=== PATIENT | male | born 1930 | race Caucasian/White ===

== ENCOUNTER → 2020-03-05 | Outpatient (CLI) | payer MEDICARE, BC ==
--- NOTE | 2020-03-05 17:10 | RAD ---
XR CHEST 2V 03/05/2020 3:18 PM INDICATION: History of chest pain COMPARISON: None available TECHNIQUE: Portable frontal view of the chest is provided. FINDINGS: The cardiomediastinal silhouette is enlarged. Median sternotomy changes are present. Lungs are clear. There are no significant pleural effusions. There is no pulmonary vascular congestion. No pneumothora x. Right shoulder arthroplasty changes are identified. Dextroconvex scoliosis of the thoracic spine is n oted. IMPRESSION: Stable cardiomegaly without acute cardiopulmonary process. Electronically signed by: Meenakshi Nuñez MD (03/05/2020 5:07 PM) [id number]
== END ==
LOC: DXRAD 15:02
PROVIDERS: ATTEND Specialist
DX: R06.02 Shortness of breath (principal); M41.84 Other forms of scoliosis, thoracic region; I51.7 Cardiomegaly; Z96.611 Presence of right artificial shoulder joint; Z48.812 Encounter for surgical aftercare following surgery on the circulatory system
CPT/HCPCS: 71046

== ENCOUNTER 2020-07-03 13:05 | Emergency (ER) | payer MEDICARE, BC ==
[~2020-07-03] VITALS: Ht 172.7 cm; Wt 68.0 kg
[2020-07-03] MEDS ORDERED: BACITRACIN ZINC TOPICAL OINT PACKET. TP ONE (14:30)
[2020-07-03] MEDS ORDERED: DIPH,PERTUSS(ACELL),TET VAC/PF 0.5 ML SYRINGE. VAX IM ONE (14:30)
--- NOTE | 2020-07-03 14:51 | RAD ---
CT scan of the head without contrast 07/03/2020 Clinical History: Fall with head injury. Technique: Unenhanced, contiguous, 5 mm axial sections were obtained through the head. One or more of the following individualized dose reduction techniques were utilized for this study: 1. Automated exposure control. 2. Adjustment of the mA and/or kV according to patient size. 3. Use of iterative reconstruction technique. Findings: There is generalized parenchymal atrophy. Areas of decreased attenuation are seen within t he periventricular and subcortical white matter of both cerebral hemispheres consistent with areas of small vessel ischemic disease. No acute parenchymal abnormality is seen. No extra-axial fluid collec tion is noted. No skull fracture is seen. A 2 cm mucous retention cyst is seen involving the right ma xillary sinus. Moderate to severe mucosal thickening is seen involving the left aspect of the sphenoi d sinus. Impression: No acute intracranial abnormality is seen. CT scan of the cervical spine without contrast 07/03/2020 Clinical history: Fall with neck injury. Technique: Unenhanced, contiguous, 0.625 mm axial sections were obtained through the cervical spine. 2 mm reconstructed axial and 2 mm coronal and sagittal reconstructed images were obtained. One or more of the following individualized dose reduction techniques were utilized for this study: 1. Automated exposure control. 2. Adjustment of the mA and/or kV according to patient size. 3. Use of iterative reconstruction technique. Findings: Sagittal and coronal reconstructed images demonstrate mild S-shaped curvature of the cervic othoracic spine. There is straightening of the normal cervical lordosis. Degenerative changes consist ing of varying degrees of disc space narrowing, vertebral endplate sclerosis and mild to moderate ant erior vertebral body osteophyte formation are seen throughout the cervical disc spaces. Atherosclerot ic calcifications in the region of the carotid bifurcations. No fracture or subluxation of the cervical vertebrae is seen. Degenerative changes are seen involving the uncovertebral and facet joints throughout the cervical disc spaces. Impression: No fracture or subluxation of the cervical vertebra is identified. Electronically signed by: Justice Dawson MD (07/03/2020 2:49 PM) [id number]
--- NOTE | 2020-07-03 14:55 | RAD ---
CT scan of facial bones and orbits without contrast 07/03/2020 CLINICAL HISTORY: Fall with facial injury. TECHNIQUE: Unenhanced, contiguous, 0.625 mm axial sections were obtained through the facial bones and orbits. 3 mm reconstructed sagittal, axial and coronal images were obtained. One or more of the following individualized dose reduction techniques were utilized for this study: 1. Automated exposure control. 2. Adjustment of the mA and/or kV according to patient size. 3. Use of iterative reconstruction technique. FINDINGS: A 2 cm mucous retention cyst is seen involving the right maxillary sinus. Moderate to sever e mucosal thickening is seen involving the left aspect of the sphenoid sinus. No facial bone fracture is seen. Both orbits are intact. Mild mucosal thickening in seen scattered throughout the ethmoid ai r cells bilaterally. No air-fluid level is seen. There is a moderate sized right laureano bullosa. IMPRESSION: No facial bone or orbital fracture is seen. Electronically signed by: Justice Dawson MD (07/03/2020 2:52 PM) [id number]
[2020-07-03] MEDS ORDERED: CEPH500C PO (16:18)
--- NOTE | 2020-07-03 16:19 | PHYS DOC ---
Past History Past Medical History: CAD, Cancer, High Cholesterol, Hypertension (FERNY HEREDIA APRN) Past Surgical History: Coronary Bypass Surgery, Other Additional Past Surgical Histo: HERNIA, COLON RESECTION (FERNY HEREDIA APRN) Alcohol Use: None (FERNY HEREDIA APRN) Adult General Chief Complaint Chief Complaint: MECHANICAL FALL HPI HPI Patient is a 89-year-old male who presents emergency department with chief complaint of approximately 1 hour prior to arrival he was outside spreading grass seed on a steep hill when he made his turn he stumbled down the hill and hit his head on the sidewalk. Patient denies any loss of consciousness. This was witnessed by the patient's daughter who is at bedside. Patient's daughter states that he did not lose consciousness. Patient states he landed on the right side of his body hitting the right side of his cheek head elbow and knee onto the ground. Patient was able to get back up without assistance, ambulates without any pain. Patient denies any pain to his joints. Patient only complains of abrasions to his knee, left elbow and upper arm, left cheek of his face, with mild 3/10 pain to his cheek area. Patient denies any head pain or neck pain. Patient states his last tetanus immunization was greater than 5 years ago. Patient denies any visual disturbances, denies any dizziness, denies any shortness of breath or chest pain. Patient denies any chest palpitations. Patient denies any rashes to his skin. Patient denies any recent fever or chills. Patient denies any recent illnesses. Patient reports he is a patient of Dr. Paniagua, has allergies to codeine and morphine sulfate, reports taking medications for cholesterol, a water pill, omeprazole, and heart medications. Patient denies being on a blood thinner. (FERNY HEREDIA APRN) Review of Systems Review of Systems 14 body systems of review of systems have been reviewed. See HPI for pertinent positives and negative responses, otherwise all other systems are negative, nonpertinent or noncontributory. (FERNY HEREDIA APRN) Current Medications Current Medications Current Medications Medications (Trade) Dose Ordered Sig/Haley Start Time Stop Time Status Last Admin Dose Admin Bacitracin (Bacitracin Topical Pkt) 1 pkt 1X ONCE 07/03/20 14:30 07/03/20 14:31 DC 07/03/20 14:13 1 PKT Diphtheria/ Pertussis/Tetanus Vacc (ADACEL TDap SYRINGE) 0.5 ml ONCE ONCE 07/03/20 14:30 07/03/20 14:31 DC 07/03/20 14:13 0.5 ML (FERNY HEREDIA APRN) Allergies Allergies Allergies Coded Allergies Type Severity Reaction Last Updated Verified codeine Allergy Unknown hallucinations 07/03/20 Yes morphine Allergy Unknown hallucinations 07/03/20 Yes (FERNY HEREDIA APRN) Physical Exam Physical Exam Constitutional: Well developed, well nourished, no acute distress, non-toxic appearance. 89-year-old male in no apparent distress, ambulated with steady gait to room for examination. HENT: Normocephalic, atraumatic, bilateral external ears normal, oropharynx moist, no oral exudates, nose normal. Minor abrasion to right zygoma area, no crepitus or bruising appreciated to the face nose, head area. No skull depressions or areas of ecchymosis of the skull appreciated. No malocclusion, no drooling, no trismus appreciated. Bilateral tympanic membranes intact within normal limits, no drainage from bilateral external auditory canals, there is no raccoon eyes, no serrato's sign appreciated. Eyes: PERRLA, EOMI, conjunctiva normal, no discharge. Satisfactory 6 cardinal eye movements. Neck: Normal range of motion, no tenderness, supple, no stridor. No C-spine tenderness appreciated, no meningismus signs, no nuchal rigidity. Cardiovascular:Heart rate regular rhythm, no murmur, heart sounds S1-S2 to auscultation. Lungs & Thorax: Bilateral breath sounds clear to auscultation no adventitious lung sounds appreciated. No pain to the anterior thorax to palpation appreciated. Abdomen: Bowel sounds normal, soft, no tenderness, no masses, no pulsatile masses. No bruising or abrasions to the abdomen. Skin: Warm, dry, no erythema, no rash. See extremity note for skin abrasion assessment. Back: No tenderness, no CVA tenderness. Extremities: No tenderness, no cyanosis, no clubbing, ROM intact, no edema. Abrasions to right upper forearm, elbow, right knee, skin tear to right distal lateral bicep area. No pain elicited with movement of all extremities, patient complained of mild pain to skin tear site stating it was more burning than it is pain. Neurologic: Alert and oriented X 3, normal motor function, normal sensory function, no focal deficits noted. Psychologic: Affect normal, judgement normal, mood normal. (FERNY HEREDIA APRN) Current Patient Data Vital Signs Vital Signs Date Time Temp Pulse Resp B/P (MAP) Pulse Ox O2 Delivery O2 Flow Rate FiO2 07/03/20 13:25 97.9 78 18 139/93 (108) 96 Room Air (FERNY HEREDIA APRN) EKG EKG [] (FERNY HEREDIA APRN) Radiology/Procedures Radiology/Procedures []PATIENT: ANDREEA HOFFACCOUNT: [id number]#: [id number] : 1930 LOCATION: ER AGE: 89 SEX: M EXAM STATUS: REG ER ORD. PHYSICIAN: FERNY HEREDIA APRN REASON: FALL PROCEDURE: CT MAXILLOFACIAL WO CONTRAST CT scan of facial bones and orbits without contrast 07/03/2020 CLINICAL HISTORY: Fall with facial injury. TECHNIQUE: Unenhanced, contiguous, 0.625 mm axial sections were obtained through the facial bones and orbits. 3 mm reconstructed sagittal, axial and coronal images were obtained. One or more of the following individualized dose reduction techniques were util ized for this study: 1. Automated exposure control. 2. Adjustment of the mA and/or kV according to patient size. 3. Use of iterative reconstruction technique. FINDINGS: A 2 cm mucous retention cyst is seen involving the right maxillary sinus. Moderate to severe mucosal thickening is seen involving the left aspect of the sphenoid sinus. No facial bone fracture is seen. Both orbits are intact. Mild mucosal thickening in seen scattered throughout the ethmoid air cells bilaterally. No air-fluid level is seen. There is a moderate sized right laureano bullosa. IMPRESSION: No facial bone or orbital fracture is seen. Electronically signed by: Justice Dawson MD (07/03/2020 2:52 PM) [id number] DICTATED AND SIGNED BY: JUSTICE DAWSON MD DATE: 07/03/20 1449 CC: FERNY HEREDIA APRN; HAYDE PANIAGUA MD ~[facility] 0 PATIENT: ANDREEA HOFF ACCOUNT: [id number] : 1930 LOCATION: ER AGE: 89 SEX: M EXAM STATUS: REG ER ORD. PHYSICIAN: FERNY HEREDIA APRN REASON: FALL PROCEDURE: CT HEAD AND CERVICAL SPINE WO CT scan of the head without contrast 07/03/2020 Clinical History: Fall with head injury. Technique: Unenhanced, contiguous, 5 mm axial sections were obtained through the head. One or more of the following individualized dose reduction techniques were utilized for this study: 1. Automated exposure control. 2. Adjustment of the mA and/or kV according to patient size. 3. Use of iterative reconstruction technique. Findings: There is generalized parenchymal atrophy. Areas of decreased attenuation are seen within the periventricular and subcortical white matter of both cerebral hemispheres consistent with areas of small vessel ischemic disease. No acute parenchymal abnormality is seen. No extra-axial fluid collection is noted. No skull fracture is seen. A 2 cm mucous retention cyst is seen involving the right maxillary sinus. Moderate to severe mucosal thickening is seen involving the left aspect of the sphenoid sinus. Impression: No acute intracranial abnormality is seen. CT scan of the cervical spine without contrast 07/03/2020 Clinical history: Fall with neck injury. Technique: Unenhanced, contiguous, 0.625 mm axial sections were obtained through the cervical spine. 2 mm reconstructed axial and 2 mm coronal and sagittal reconstructed images were obtained. One or more of the following individualized dose reduction techniques were utilized for this study: 1. Automated exposure control. 2. Adjustment of the mA and/or kV according to patient size. 3. Use of iterative reconstruction technique. Findings: Sagittal and coronal reconstructed images demonstrate mild S-shaped curvature of the cervicothoracic spine. There is straightening of the normal cervical lordosis. Degenerative changes consisting of varying degrees of disc space narrowing, vertebral endplate sclerosis and mild to moderate anterior vertebral body osteophyte formation are seen throughout the cervical disc spaces. Atherosclerotic calcifications in the region of the carotid bifurcations. No fracture or subluxation of the cervical vertebrae is seen. Degenerative pugh es are seen involving the uncovertebral and facet joints throughout the cervical disc spaces. Impression: No fracture or subluxation of the cervical vertebra is identified. Electronically signed by: Justice Dawson MD (07/03/2020 2:49 PM) [id number] DICTATED AND SIGNED BY: JUSTICE DAWSON MD DATE: 07/03/20 1437 CC: FERNY HEREDIA APRN; HAYDE PANIAGUA MD ~[facility] 0 (FERNY HEREDIA APRN) Heart Score C/O Chest Pain: No Risk Factors: Risk Factors: DM, Current or recent (<one month) smoker, HTN, HLP, family history of CAD, obesity. Risk Scores: Risk Factors: DM, Current or recent (<one month) smoker, HTN, HLP, family history of CAD, obesity. (FERNY HEREDIA APRN) Course & Med Decision Making Course & Med Decision Making Pertinent Labs and Imaging studies reviewed. (See chart for details) 89-year-old male, vital signs reviewed, presents emergency department after a stumble and fall while spreading grass this morning approximately 1 hour prior to arrival to the ER today. Patient did not lose any consciousness. Patient had multiple minor abrasions with one skin tear to the right bicep area. Patient ambulated without difficulty, ambulated with steady gait. Physical examination concerning for possible head/facial bones/neck injury, ordered CT head, C-spine, maxillofacial bones without contrast. Patient's tetanus immunization was not up-to-date, the patient was given Adacel to bring tetanus immunization up-to-date today in the emergency department. Offered patient pain medication, patient refused stating that his pain is only at 3/10 on a 1-[address] imaging negative for acute process, discussed findings with patient, discussed with patient starting on Keflex 500 mg 4 times daily x5 days for infec tion prophylaxis related to injury happening outside doing yard work. Patient is amenable to this plan. Procedure note: Repaired skin tear right bicep area, cleansed area with chlorhexidine skin cleanser, flushed with normal saline, skin tear approximated and glued, partial skin avulsions at/around skin tear was covered with Tegaderm dressing. All other abrasions were cleansed with chlorhexidine cleanse, flushed with normal saline, dressed with bacitracin by ED nursing staff. Patient was given written information related to tetanus immunization by ED nursing staff. Patient gave verbal understanding of discharge home instructions, head injury precautions, postconcussive syndrome signs and symptoms, tetanus immunization brought up-to-date in the ER today, strict return to emergency department precautions and concerns, strict follow-up with primary care call for appointment on Sunday, patient was thankful and ready to go home, patient was discharged home without incident. Patient does live by self, however patient's daughter states she will stay with him tonight and monitor for head injury precautions (FERNY HEREDIA APRN) Dragon Disclaimer Dragon Disclaimer This electronic medical record was generated, in whole or in part, using a voice recognition dictation system. (FERNY HEREDIA APRN) Attending Co-Sign The patient was seen and interviewed as well as examined at the bedside. The chart was reviewed. The case was discussed. Agree with the plan of care. (JOI HAGER DO) Departure Departure: Impression: Primary Impression: Fall (on)(from) incline, initial encounter Additional Impressions: Injury of head in adult Concussion Abrasion Skin tear of right upper arm without complication Diphtheria, tetanus, acellular pertussis, and inactivated poliovirus vaccine (DTaP-IPV) administered Disposition: HOME / SELF CARE / HOMELESS Condition: GOOD Referrals: HAYDE PANIAGUA MD (PCP) Patient Instructions: Abrasions, Bacitracin skin ointment, Concussion and Brain Injury, Head Injury, Adult, Skin Tear Care Additional Instructions: You were seen in the emergency department today for a slip and fall on uneven surface while you were seeding your lawn. You did not lose consciousness however related to your health history and age a CT of your head and C-spine were performed. There were no concerning findings that would require admission to the hospital or immediate intervention by a neurologist, neurosurgeon, or orthopedic surgeon. Your tetanus status was brought up-to-date in the emergency department today. Your skin abrasions were cleansed and dressed today in the emergency department, your skin tear was repaired with Dermabond skin glue and covered with a Tegaderm dressing, the goal is to have this dressing intact for at least 5 to 7 days before Tegaderm dressing is removed. We discussed in detail head injury precautions, concussion precautions, we also discussed strict follow-up with your primary care physician, please call this Sunday for an appointment. Please return to the emergency department immediately for worsening symptoms or other concerns. Because of the multiple abrasions you suffered, I am prescribing you an antibiotic that you will take 4 times a day for the next 5 days. Please let your primary care physician know that you are on this antibiotic. Please let your primary care physician know that your tetanus status was brought up-to-date in the emergency department. Scripts Cephalexin (CEPHALEXIN) 500 Mg Capsule 1 CAP PO QID for SKIN INFECTION PREVENTION for 5 Days, #20 CAP 0 Refills Prov: FERNY HEREDIA APRN 07/03/20 Problem Qualifiers Additional Impressions: Concussion Encounter type: initial encounter Loss of consciousness presence/duration: without LOC Qualified Codes: S06.0X0A - Concussion without loss of consciousness, initial encounter Skin tear of right upper arm without complication Encounter type: initial encounter Qualified Codes: S41.111A - Laceration without foreign body of right upper arm, initial encounter FERNY HEREDIA APRN July 03, 2020 16:19 JOI HAGER DO July 05, 2020 12:13
[2020-07-03 16:25] VITALS: BP 128/86
== END 2020-07-03 16:25 | disposition home or self-care (01) ==
LOC: ER 13:05
DX: S41.111A Laceration without foreign body of right upper arm, initial encounter (principal); S06.0X0A Concussion without loss of consciousness, initial encounter; S80.212A Abrasion, left knee, initial encounter; S50.312A Abrasion of left elbow, initial encounter; S00.81XA Abrasion of other part of head, initial encounter; W17.89XA Other fall from one level to another, initial encounter; Y93.89 Activity, other specified; Y92.828 Other wilderness area as the place of occurrence of the external cause; Y99.8 Other external cause status
CPT/HCPCS: 70450; 70486; 72125; 90471; 90715; 99285-25

== ENCOUNTER → 2020-07-05 | Outpatient (CLI) | payer MEDICARE, BC ==
[2020-07-03 16:25] VITALS: BP 128/86
[~2020-07-05] MED LIST: CEPH500C PO
--- NOTE | 2020-07-05 11:44 | RAD ---
EXAM: Left knee, 4 views. HISTORY: Pain. Fall. COMPARISON: None. FINDINGS: 4 views of the left knee are obtained. There is moderate to severe medial joint space narro wing. There is moderate medial and patellofemoral compartment spurring. There is chondrocalcinosis. T here are vascular clips. There is a moderate joint effusion and prepatellar soft tissue swelling. IMPRESSION: 1. 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 2. No acute osseous finding. Electronically signed by: Joanna Duvall MD (07/05/2020 11:42 AM) [id number]
== END ==
LOC: RAD 11:15
PROVIDERS: ATTEND Physician Assistant
DX: M17.12 Unilateral primary osteoarthritis, left knee (principal); M25.462 Effusion, left knee; M79.89 Other specified soft tissue disorders
CPT/HCPCS: 73564

== ENCOUNTER → 2020-09-03 | Outpatient (CLI) | payer MEDICARE, BC ==
--- NOTE | 2020-09-03 16:09 | RAD ---
3 views the cervical spine without comparison for neck pain. FINDINGS: The atlantoaxial articulation is intact. There is no definite fracture or acute osseous or alignment abnormality identified, however there is deep angular scoliosis of the upper thoracic spine , apex at T3-4, which is not well depicted. If there is clinical concern for traumatic abnormality of the upper thoracic spine, dedicated CT scan is recommended. Within the cervical spine, there is hao re degenerative disc disease at C5-6 and C6-7, with near complete obliteration of the C5-6 interverte bral disc space. There is grade 1 retrolisthesis of C5 on C6, and grade 1 anterolisthesis of C4 on C5 . There is also grade 1 anterolisthesis of C7 on T1. There is mild posterior offset to the spinal oakley inar line at C5 consistent with the vertebral body retrolisthesis. Extensive multilevel facet arthros is is evident, along with uncovertebral arthrosis. Bilateral carotid artery stenosis. Median sternal wires, some of which are fractured. No significant prevertebral soft tissue swelling. IMPRESSION: 1. Extensive multilevel degenerative changes of the cervical spine, primarily at C5-6 and C6-7. No de finite fracture or acute osseous or alignment abnormality, however given the degree of facet and unco vertebral arthrosis along with the mild grade 1 retrolisthesis of C5, traumatic changes could be obsc ured. If there is history of trauma, further evaluation with CT scan of cervical spine should be cons idered. 2. Triangular deformity of the upper thoracic spine, apex T3-4. This is most likely degenerative, how ever once again if there is a history of trauma, further evaluation with CT of the thoracic spine ursula uld be considered. Electronically signed by: Jose Munson MD (09/03/2020 4:06 PM) [id number]
== END ==
LOC: RAD 14:45
PROVIDERS: ATTEND Specialist
DX: M47.22 Other spondylosis with radiculopathy, cervical region (principal); M50.122 Cervical disc disorder at C5-C6 level with radiculopathy; M43.12 Spondylolisthesis, cervical region; I65.23 Occlusion and stenosis of bilateral carotid arteries
CPT/HCPCS: 72040

== ENCOUNTER 2020-10-05 09:33 | Emergency (ER) | payer MEDICARE, BC ==
[~2020-10-05] VITALS: Ht 172.7 cm; Wt 64.9 kg
--- NOTE | 2020-10-05 10:10 | PHYS DOC ---
Past History Past Medical History: CAD, Cancer, High Cholesterol, Hypertension Additional Past Medical Histor: Non Hodgkins Lymphoma Past Surgical History: Coronary Bypass Surgery, Other Additional Past Surgical Histo: HERNIA, COLON RESECTION, shoulder replaced X 2 Alcohol Use: None Adult General Chief Complaint Chief Complaint: CHEST PAIN [facility] HPI Patient is a 89-year-old male presenting with daughter for chest pressure. Reports onset was 2 weeks ago without any known inciting event or trauma. Nothing known makes better or worse. Reports he woke up this morning with an episode that lasted approximately 30 seconds and resolved without any issues. Admits he has significant cardiac history, has history of 5 vessel CABG in 2008 with recent heart cath in March 2020 at which no intervention was performed. He is on no blood thinners, just aspirin for ongoing atrial fibrillation and is pending outpatient veterinary dentist consult for discussion on management options for his atrial fibrillation. Daughter admits there have been talks about placing a pacemaker in the past. Patient denies any symptoms on arrival, no lightheadedness or dizziness, fever, ripping or tearing sensation in the chest, shortness of breath or cough. He is fully vaccinated for COVID-19 Review of Systems Review of Systems Fourteen body systems of review of systems have been reviewed. See HPI for pertinent positives and negative responses, other gonzalez all other systems are negative, non-pertinent or non-contributory Allergies Allergies Allergies Coded Allergies Type Severity Reaction Last Updated Verified codeine Allergy Unknown hallucinations 10/05/20 Yes morphine Allergy Unknown hallucinations 10/05/20 Yes Physical Exam Physical Exam Constitutional: Well developed, well nourished, no acute distress, non-toxic appearance. HENT: Normocephalic, atraumatic, bilateral external ears normal, oropharynx moist, no oral exudates, nose normal. Eyes: PERRLA, EOMI, conjunctiva normal, no discharge. Neck: Normal range of motion, no tenderness, supple, no stridor. Cardiovascular: Heart rate regular, sinus rhythm, no murmurs rubs or gallops Lungs & Thorax: Bilateral breath sounds clear to auscultation Abdomen: Bowel sounds normal, soft, no tenderness, no masses, no pulsatile masses. Nonsurgical abdomen, no peritoneal signs Skin: Warm, dry, no erythema, no rash. Back: No tenderness, no CVA tenderness. Extremities: No tenderness, no cyanosis, no clubbing, ROM intact, no edema. Neurologic: Alert and oriented X 3, grossly normal motor & sensory function, no focal deficits noted. Psychologic: Affect normal, judgement normal, mood normal. Current Patient Data Vital Signs Vital Signs Date Time Temp Pulse Resp B/P (MAP) Pulse Ox O2 Delivery O2 Flow Rate FiO2 10/05/20 09:45 98.2 70 21 116/75 98 Lab Results Current Medications Medications (Trade) Dose Ordered Sig/Haley Route PRN Reason Start Time Stop Time Status Last Admin Dose Admin Aspirin (Aspirin Chewable) 162 mg 1X ONCE PO 10/05/20 10:15 10/05/20 10:16 DC 10/05/20 10:30 EKG EKG EKG ordered and interpreted by myself at 0950 hrs. as atrial fibrillation at 71 bpm, QRS 128 otherwise unremarkable intervals, left axis deviation, T wave inversion in lead aVL, no STEMI EKG ordered and interpreted by myself at 1150 hrs. as sinus rhythm at 67 bpm, prolonged CA interval at 292 and QTc 462 otherwise unremarkable intervals, left axis deviation, no obvious ischemic findings, no STEMI Radiology/Procedures Radiology/Procedures EXAM: CHEST 1 VIEW History: Chest pain COMPARISON: 03/05/2020 TECHNIQUE: Single portable radiograph of the chest FINDINGS: Unchanged mild cardiomegaly. The lungs are clear bilaterally. The costophrenic sulci are clear and well demarcated. IMPRESSION: No radiographic evidence of an acute cardiopulmonary process. Electronically signed by: Josue Poon MD (10/05/2020 10:38 AM) [id number] Heart Score C/O Chest Pain: Yes HEART Score for Chest Pain: HEART Score for Chest Pain Response (Comments) Value History Highly Suspicious 2 ECG Nonspecific Repolarizatio 1 Age > 65 2 Risk Factors >3 Risk Factors or Hx CAD 2 Troponin < Normal Limit 0 Total 7 Risk Factors: Risk Factors: DM, Current or recent (<one month) smoker, HTN, HLP, family history of CAD, obesity. Risk Scores: Risk Factors: DM, Current or recent (<one month) smoker, HTN, HLP, family history of CAD, obesity. Course & Med Decision Making Course & Med Decision Making Vitals stable. HPI, physical examination and ER work-up nonconcerning for any emergent or surgical issues. High heart score, I reviewed right risk of potential adverse cardiac event given patient's history and recommended cardiac observation Patient accepted at [facility] for [facility]. Nonetheless, due to COVID-19 pandemic and lack of beds, patient spent greater than 9 hours in our ER pending transfer. He had x3 - troponin and EKGs. Patient remained asymptomatic and voiced that he wanted to go home I disclosed that I could not fully guarantee no adverse cardiac event; however, given serial troponin and EKGs I did disclose there is a decrease risk especially since he remained asymptomatic. Patient and daughter continued to voice that they wanted to go home Ultimately, patient was discharged with close PCP and office rn follow-up in outpatient setting with strict return precautions discussed and fully understood by both prior to departure Dragon Disclaimer Dragon Disclaimer This electronic medical record was generated, in whole or in part, using a voice recognition dictation system. Departure Departure: Impression: Primary Impression: Chest pain, unspecified Disposition: HOME / SELF CARE / HOMELESS Condition: STABLE Referrals: HAYDE PANIAGUA MD (PCP) Patient Instructions: Chest Pain (Nonspecific) Additional Instructions: You were seen for chest pain. Your workup did not show any acute abnormalities today, but does not indicate that you do not have underlying cardiovascular disease. You do need to follow up with your primary doctor and your office rn for further evaluation and treatment. You should return to the ED if you develop worsening chest pain, shortness of breath, fever, abnormal sweating, leg swelling, or any other new or concerning symptoms. MISTY WOODARD DO Oct 05, 2020 10:10
[2020-10-05] MEDS ORDERED: ASPIRIN CHEWABLE 81 MG TABLET. PO ONE (10:15)
[2020-10-05 10:18] LABS: BASO % 0 % (0-3); EOS # 0.1 x10^3/uL (0.0-0.7); EOS % 2 % (0-3); HEMATOCRIT 40.3 % (39.0-53.0); HEMOGLOBIN 13.3 g/dL (13.0-17.5); LYMPH # 1.4 x10^3/uL (1.0-4.8); LYMPH % 25 % (24-48); MEAN CORPUSCULAR HEMOGLOBIN 31 pg (25-35); MEAN CORPUSCULAR HGB CONC 33 g/dL (31-37); MEAN CORPUSCULAR VOLUME 96 fL (79-100); MONO # 0.6 x10^3/uL (0.0-1.1); MONO % 11 % (0-9); NEUT # 3.4 x10^3uL (1.8-7.7); NEUT % 62 % (31-73); PLATELET COUNT 109 x10^3/uL (140-400); RED BLOOD COUNT 4.22 x10^6/uL (4.30-5.70); WHITE BLOOD COUNT 5.5 x10^3/uL (4.0-11.0)
[2020-10-05 10:35] LABS: CALCIUM 8.5 mg/dL (8.5-10.1); CREATININE 1.2 mg/dL (0.7-1.3); GFR 57.1; POTASSIUM 4.1 mmol/L (3.5-5.1)
--- NOTE | 2020-10-05 10:41 | RAD ---
EXAM: CHEST 1 VIEW History: Chest pain COMPARISON: 03/05/2020 TECHNIQUE: Single portable radiograph of the chest FINDINGS: Unchanged mild cardiomegaly. The lungs are clear bilaterally. The costophrenic sulci are c lear and well demarcated. IMPRESSION: No radiographic evidence of an acute cardiopulmonary process. Electronically signed by: Josue Poon MD (10/05/2020 10:38 AM) [id number]
[2020-10-05 10:42] LABS: ALBUMIN 3.4 g/dL (3.4-5.0); ALBUMIN/GLOBULIN RATIO 1.3 (1.0-1.7); TOTAL BILIRUBIN 0.5 mg/dL (0.2-1.0); TOTAL PROTEIN 6.1 g/dL (6.4-8.2)
--- NOTE | 2020-10-05 10:55 | EKG ---
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
--- NOTE | 2020-10-05 12:16 | EKG ---
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
[2020-10-05 17:45] VITALS: BP 110/72
== END 2020-10-05 17:54 | disposition home or self-care (01) ==
LOC: ER 09:33
DX: R07.9 Chest pain, unspecified (principal); I25.810 Atherosclerosis of coronary artery bypass graft(s) without angina pectoris; E78.00 Pure hypercholesterolemia, unspecified; I10 Essential (primary) hypertension; Z20.822 Contact with and (suspected) exposure to COVID-19; Z88.5 Allergy status to narcotic agent
CPT/HCPCS: 36415; 71045; 80053; 83880; 84484; 85025; 87426; 93005; 99285-25

== ENCOUNTER → 2021-03-24 | Outpatient (CLI) | payer MEDICARE, BC ==
[~2021-03-24] MED LIST changes: +PEG4000S8 PO
--- NOTE | 2021-03-24 12:41 | RAD ---
Examination: Upright and supine views of the abdomen HISTORY: History of diarrhea for one week COMPARISON: None available Findings/ impression: Moderate amount of stool identified throughout the colon probably constipation. The bowel gas pattern appears unremarkable. Lumbar levoscoliosis. Electronically signed by: Josue Poon MD (03/24/2021 12:39 PM) [id number]
== END ==
LOC: RAD 12:13
PROVIDERS: ATTEND Family Medicine
DX: K56.41 Fecal impaction (principal); R19.7 Diarrhea, unspecified
CPT/HCPCS: 74019

== ENCOUNTER 2021-03-25 17:26 | Emergency (ER) | payer MEDICARE, BC ==
[~2021-03-25] VITALS: Ht 172.7 cm; Wt 57.0 kg
[~2021-03-25 17:26] MED LIST changes: -PEG4000S8 PO
[2021-03-25 17:43] VITALS: BP 107/71
--- NOTE | 2021-03-25 18:02 | PHYS DOC ---
Past History Past Medical History: CAD, Cancer, High Cholesterol, Hypertension Additional Past Medical Histor: Non Hodgkins Lymphoma Past Surgical History: Coronary Bypass Surgery, Other Additional Past Surgical Histo: HERNIA, COLON RESECTION, shoulder replaced X 2, MOUTH SURGERY FOR CANCER Alcohol Use: None General Adult EDM: Chief Complaint: CONSTIPATION HPI: HPI: "..I am still constipated.. my doctor said come in and see what you guys can do... I had oral surgery on Jan.25. still on feeding tube.. " Patient is a 89 year old male who presents with above hx and complaints obstipation/constipation. 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 Patient normally follows with Dr. Bismark Menard and Dr. Steward. Does have past history of coronary artery disease, high cholesterol, hypertension, non-Hodgkin's lymphoma, coronary artery bypass surgery, hernia repair, colon resection, shoulder replacement x2 and deconditioning. Patient states his had only small balls of stool recently. Stool has consisted of very hard balls. Pt follows with [facility] and Dr. Steward. Pt. living independely, but daughter is with him most of the day...Review of prior KUB marked constipation noted. No free air. Review of Systems: Review of Systems: Constitutional: Denies fever or chills Eyes: Denies change in visual acuity HENT: Denies nasal congestion or sore throat Respiratory: Denies cough or shortness of breath Cardiovascular: Denies chest pain or edema GI: Complaints of abdominal pain, nausea, constipationj. Deniesvomiting, bloody stools or diarrhea : Denies dysuria Musculoskeletal: Denies back pain or joint pain Integument: Denies rash Neurologic: Denies headache, focal weakness or sensory changes Endocrine: Denies polyuria or polydipsia Lymphatic: Denies swollen glands Psychiatric: Denies depression or anxiety Family History: Family History: Noncontributory to presentation Current Medications: Current Meds: See nursing for home meds Allergies: Allergies: Allergies Coded Allergies Type Severity Reaction Last Updated Verified codeine Allergy Unknown hallucinations 03/25/21 Yes morphine Allergy Unknown hallucinations 03/25/21 Yes Physical Exam: PE: Constitutional: Moderate acute distress, non-toxic appearance. [] HENT: Normocephalic, atraumatic, bilateral external ears normal, oropharynx moist, no oral exudates, nose normal. Surgery scars Eyes: PERRLA, EOMI, conjunctiva normal, no discharge. [] Neck: Normal range of motion, no tenderness, supple, no stridor. [] Cardiovascular:Heart rate regular rhythm, no murmur [] Lungs & Thorax: Bilateral breath sounds equal apex on auscultation [] Abdomen: Bowel sounds normal, soft, generalized tenderness, no masses, no pulsatile masses. Extremity distended. Very impacted obstipated hard balls of stool in rectal vault. Skin: Warm, dry, no erythema, no rash. Poor turgor. Back: No tenderness, no CVA tenderness. [] Extremities: No tenderness, no cyanosis, no clubbing, ROM intact, no edema. Arthritic changes. No cording appreciated Neurologic: Alert and oriented X 3, moves all extremities on request, does have distal sensory. No focal deficits noted. [] Psychologic: Affect anxious, judgement normal, mood normal. [] Current Patient Data: Vital Signs: Vital Signs Date Time Temp Pulse Resp B/P (MAP) Pulse Ox O2 Delivery O2 Flow Rate FiO2 03/25/21 17:43 97.9 82 18 107/71 (83) 99 EKG: EKG: [] Radiology/Procedures: Radiology/Procedures: [] Heart Score: C/O Chest Pain: N/A Risk Factors: Risk Factors: DM, Current or recent (<one month) smoker, HTN, HLP, family history of CAD, obesity. Risk Scores: Score 0 - 3: 2.5% MACE over next 6 weeks - Discharge Home Score 4 - 6: 20.3% MACE over next 6 weeks - Admit for Clinical Observation Score 7 - 10: 72.7% MACE over next 6 weeks - Early Invasive Strategies Course & Med Decision Making: Course & Med Decision Making Pertinent Labs and Imaging studies reviewed. (See chart for details) Procedure note-digital disimpaction-use of glycerin suppositories and fleets. Patient also digitally disimpacted some very hard impacted stool. Patient to remain on clear fluid diet. Patient to take an additional 125 cc of mag citrate and then complete GoLYTELY and juice of choice 1 cup every hour until liquid stools. Follow-up primary care. Return if any concerns. Expect some cramping with the passage of stool bolus. Impression: 1. Recent oral surgery for cancer and reconstruction of mandible 2. Obstipation/constipation. [] Dragon Disclaimer: Dragon Disclaimer: This electronic medical record was generated, in whole or in part, using a voice recognition dictation system. Departure Departure: Referrals: HAYDE PANIAGUA MD (PCP) Scripts Peg 3350/Na Sulf,Bicarb,Cl/Kcl (GOLYTELY SOLUTION) 4,000 Ml Soln.recon 4000 ML PO one cup hour for Constipation/ obstipation for 30 Days, MISC Prov: VISHAL BATES MD 03/25/21 Bertha Disclaimer This chart was dictated in whole or in part using Voice Recognition software in a busy, high-work load, and often noisy Emergency Department environment. It may contain unintended and wholly unrecognized errors or omissions. VISHAL BATES MD Mar 25, 2021 18:02
[2021-03-25] MEDS ORDERED: MAGNESIUM CITRATE 296 ML SOLUTION. ONE (18:06)
[2021-03-25] MEDS ORDERED: MAGNESIUM CITRATE 296 ML SOLUTION. PO ONE (18:15)
[2021-03-25] MEDS ORDERED: GLYCERIN ADULT 1 SUPP.RECT. PR ONE (18:30)
[2021-03-25] MEDS ORDERED: SODIUM PHOSPHATES 19/7GM 133 ML ENEMA. ONE (18:45)
[2021-03-25] MEDS ORDERED: SODIUM PHOSPHATES 19/7GM 133 ML ENEMA. PR ONE (19:00)
[2021-03-25] MEDS ORDERED: PEG4000S8 PO (19:03)
== END 2021-03-25 19:39 | disposition home or self-care (01) ==
LOC: ER 17:26
DX: K59.00 Constipation, unspecified (principal); E78.00 Pure hypercholesterolemia, unspecified; I25.810 Atherosclerosis of coronary artery bypass graft(s) without angina pectoris; I10 Essential (primary) hypertension; Z88.5 Allergy status to narcotic agent
CPT/HCPCS: 99284

== ENCOUNTER 2021-04-18 04:42 | Emergency (ER) | payer MEDICARE, BC ==
[~2021-04-18] VITALS: Ht 172.7 cm; Wt 55.9 kg
[~2021-04-18 04:42] MED LIST changes: +PEG4000S8 PO
--- NOTE | 2021-04-18 05:14 | PHYS DOC ---
Past History Past Medical History: CAD, Cancer, High Cholesterol, Hypertension Additional Past Medical Histor: Non Hodgkins Lymphoma Past Surgical History: Coronary Bypass Surgery, Other Additional Past Surgical Histo: HERNIA, COLON RESECTION, shoulder replaced X 2, MOUTH SURGERY FOR CANCER Alcohol Use: None General Adult EDM: Chief Complaint: OTHER COMPLAINTS HPI: HPI: 89-year-old male presents with oral bleeding. 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 Patient started having bleeding from his mouth overnight tonight. He has not been having any bleeding since his last surgery which was in January 2021. He does believe that he has had recurrence of his mass and is scheduled to have a PET CT scan today at . They did not go to , they came here. The patient has recently lost 2 lower teeth and there is an open wound around another loose tooth. Patient denies nausea, vomiting, dizziness, shortness of breath Review of Systems: Review of Systems: Constitutional: Denies fever or chills Eyes: Denies change in visual acuity HENT: Oral bleeding Respiratory: Denies cough or shortness of breath Cardiovascular: Denies chest pain or edema GI: Denies abdominal pain, nausea, vomiting, bloody stools or diarrhea : Denies dysuria Musculoskeletal: Denies back pain or joint pain Integument: Denies rash Neurologic: Denies headache, focal weakness or sensory changes Endocrine: Denies polyuria or polydipsia Lymphatic: Denies swollen glands Psychiatric: Denies depression or anxiety Allergies: Allergies: Allergies Coded Allergies Type Severity Reaction Last Updated Verified codeine Allergy Unknown hallucinations 03/25/21 Yes morphine Allergy Unknown hallucinations 03/25/21 Yes Physical Exam: PE: Constitutional: Well developed, well nourished, no acute distress, non-toxic appearance. [] HENT: Normocephalic, atraumatic, bilateral external ears normal, deformation of the structures of the left side of the mouth. Bleeding that appears to be coming from the inferior jaw. Multiple loose and compromised teeth. [] Eyes: PERRLA, EOMI, conjunctiva normal, no discharge. [] Neck: Normal range of motion, no tenderness, supple, no stridor. [] Cardiovascular: Heart rate regular rhythm, no murmur [] Lungs & Thorax: Bilateral breath sounds clear to auscultation [] Abdomen: Bowel sounds normal, soft, no tenderness, no masses, no pulsatile masses. [] Skin: Warm, dry, no erythema, no rash. [] Back: No tenderness, no CVA tenderness. [] Extremities: No tenderness, no cyanosis, no clubbing, ROM intact, no edema. [] Neurologic: Alert and oriented X 3, normal motor function, normal sensory function, no focal deficits noted. [] Psychologic: Affect normal, judgement normal, mood normal. [] EKG: EKG: [] Radiology/Procedures: Radiology/Procedures: [] Heart Score: C/O Chest Pain: N/A Risk Factors: Risk Factors: DM, Current or recent (<one month) smoker, HTN, HLP, family history of CAD, obesity. Risk Scores: Score 0 - 3: 2.5% MACE over next 6 weeks - Discharge Home Score 4 - 6: 20.3% MACE over next 6 weeks - Admit for Clinical Observation Score 7 - 10: 72.7% MACE over next 6 weeks - Early Invasive Strategies Course & Med Decision Making: Course & Med Decision Making Pertinent Labs and Imaging studies reviewed. (See chart for details) There is a lot of soft clot as well as darker colored removal out of the patient's mouth. Is been difficult to ascertain the source of the bleeding. I believe it is coming from the central lower mouth behind the teeth. We are attempting direct gauze compression at this time. The bleeding appears to have stopped. I am concerned that that is very loose tooth in the front is related to the cause. It may fall out at any time and the bleeding may resume. I have advised that they try not to mess with it and called the surgeon's office today. Hopefully they can see them as soon as possible. The patient has hemoglobin of 11.8. He is stable for discharge at this time. [] Dragon Disclaimer: Dragon Disclaimer: This electronic medical record was generated, in whole or in part, using a voice recognition dictation system. Departure Departure: Impression: Primary Impression: Oral hemorrhage Disposition: HOME / SELF CARE / HOMELESS Condition: IMPROVED Referrals: HAYDE PANIAGUA MD (PCP) Patient Instructions: Postsurgical Bleeding JOI HAGER DO Apr 18, 2021 05:13
[2021-04-18] MEDS ORDERED: ONDANSETRON PF 4 MG/2 ML VIAL. IVP ONE (05:30)
[2021-04-18 05:32] LABS: BASO % 1 % (0-3); EOS # 0.1 x10^3/uL (0.0-0.7); EOS % 2 % (0-3); HEMATOCRIT 35.8 % (39.0-53.0); HEMOGLOBIN 11.8 g/dL (13.0-17.5); LYMPH # 1.6 x10^3/uL (1.0-4.8); LYMPH % 27 % (24-48); MEAN CORPUSCULAR HEMOGLOBIN 31 pg (25-35); MEAN CORPUSCULAR HGB CONC 33 g/dL (31-37); MEAN CORPUSCULAR VOLUME 93 fL (79-100); MONO # 0.6 x10^3/uL (0.0-1.1); MONO % 9 % (0-9); NEUT # 3.6 x10^3uL (1.8-7.7); NEUT % 61 % (31-73); PLATELET COUNT 149 x10^3/uL (140-400); RED BLOOD COUNT 3.84 x10^6/uL (4.30-5.70); RED CELL DISTRIBUTION WIDTH 15.7 % (11.5-14.5)
[2021-04-18 05:46] LABS: CREATININE 0.9 mg/dL (0.7-1.3); GFR 79.6; POTASSIUM 3.1 mmol/L (3.5-5.1)
[2021-04-18 05:52] LABS: ALBUMIN 2.9 g/dL (3.4-5.0); ALBUMIN/GLOBULIN RATIO 0.8 (1.0-1.7); TOTAL BILIRUBIN 0.5 mg/dL (0.2-1.0); TOTAL PROTEIN 6.7 g/dL (6.4-8.2)
[2021-04-18 06:50] VITALS: BP 112/68
== END 2021-04-18 06:52 | disposition home or self-care (01) ==
LOC: ER 04:42
DX: K13.79 Other lesions of oral mucosa (principal); E78.00 Pure hypercholesterolemia, unspecified; I10 Essential (primary) hypertension; I25.810 Atherosclerosis of coronary artery bypass graft(s) without angina pectoris; Z88.5 Allergy status to narcotic agent
CPT/HCPCS: 36415; 80053; 85025; 85610; 85730; 96374; 96375; 99285; J2405; J3010